=== PATIENT | male | born 1990 | race Caucasian/White ===

== ENCOUNTER 2019-12-30 13:32 | Emergency (ER) | payer OTHER ==
[~2019-12-30] VITALS: Ht 180.3 cm; Wt 81.7 kg
[2019-12-30] MEDS ORDERED: FLEXERIL PO (14:39)
[2019-12-30] MEDS ORDERED: IBUPROFEN 800800 M1 PO (14:39)
[2019-12-30 15:02] VITALS: BP 116/76
== END 2019-12-30 15:03 | disposition home or self-care (01) ==
LOC: M.ERS 13:32
DX: S46.212A Strain of muscle, fascia and tendon of other parts of biceps, left arm, initial encounter (principal); S46.812A Strain of other muscles, fascia and tendons at shoulder and upper arm level, left arm, initial encounter; X50.9XXA Other and unspecified overexertion or strenuous movements or postures, initial encounter; Y93.89 Activity, other specified; Y92.89 Other specified places as the place of occurrence of the external cause; Y99.8 Other external cause status